=== PATIENT | female | born 1990 | race Native Hawaiian/Other Pacific Islander ===

== ENCOUNTER 2019-06-16 09:27 | Outpatient (CLI) | payer OTHER | END 2019-06-16 23:37 | disposition home or self-care (01) | LOC: RAD 09:27 | DX: G56.21 Lesion of ulnar nerve, right upper limb (principal) | CPT/HCPCS: 95885; 95911 ==

== ENCOUNTER 2019-11-19 08:10 | Outpatient (CLI) | payer OTHER | END 2019-11-19 21:29 | disposition home or self-care (01) | LOC: US 08:10 | DX: N92.0 Excessive and frequent menstruation with regular cycle (principal) ==

== ENCOUNTER 2019-12-21 16:25 | Outpatient (CLI) | payer OTHER | END 2019-12-21 19:19 | disposition home or self-care (01) | LOC: RAD 16:25 | DX: S30.0XXA Contusion of lower back and pelvis, initial encounter (principal); S24.109A Unspecified injury at unspecified level of thoracic spinal cord, initial encounter ==

== ENCOUNTER 2020-02-24 12:12 | Outpatient (CLI) | payer OTHER | END 2020-02-24 19:18 | disposition home or self-care (01) | LOC: RAD 12:12 | DX: R22.31 Localized swelling, mass and lump, right upper limb (principal) ==